=== PATIENT | male | born 1960 | race Caucasian/White ===

== ENCOUNTER → 2020-08-22 | Outpatient (CLI) | payer OTHER ==
[~2020-08-22] VITALS: Ht 182 cm; Wt 74.0 kg
[~2020-08-22] MED LIST: CATHETER FLUSH 10 ML SYR IV PRN; REGADENOSON 0.4 MG/5 ML SYR (LEXISCAN) IV ONE
[2020-08-22 12:15] VITALS: BP 118/71
[2020-08-22 12:20] VITALS: BP 154/70
[2020-08-22 12:25] VITALS: BP 141/85
[2020-08-22 12:28] VITALS: BP 127/83
--- NOTE | 2020-08-22 15:16 | Cardiology Stress Test Report ---
Stress Test Report Date of Procedure/Referring: Date of Procedure: Aug 22, 2020 PCP Myles Gusman MD Admitting Physician No,Local Physician Indications: Shortness of breath Baseline Heart Rate: 71 Baseline Blood Pressure: Blood Pressure Systolic: 127 Blood Pressure Diastolic: 83 Baseline Vitals Vital Signs Date Time Temp Pulse Resp B/P (MAP) Pulse Ox O2 Delivery O2 Flow Rate FiO2 08/22/20 12:15 88 118/71 (87) 98 Room Air Baseline EKG: Baseline EKG: normal sinus rhythm Summary After explaining the procedure to the patient, he signed a consent and then brought to the stress nuclear laboratory. Patient received 0.4 mg Lexiscan for stress test, ECG, heart rate and blood pressure were monitored continuously. Resting and stress dose of radio tracer were injected, imaging was acquired and reviewed in short axis, horizontal long axis and vertical long axis views. TID: 1.06 SSS: 6 SDS: 0 EF: 55 1. Patient was unable to exercise beyond 2 minutes and 30 seconds on standard Dario protocol did not achieve his target heart rate, test was converted to Lexiscan 2. Patient tolerated Lexiscan well 3. Diaphragmatic attenuation with fixed defect involving the mid to apical inferior wall with no significant reversibility 4. Normal left ventricular size, EF 55 percent MYLES GUSMAN MD Aug 22, 2020 15:16
== END ==
LOC: CARD 11:00
PROVIDERS: ATTEND Internal Medicine Cardiovascular Disease
DX: J44.9 Chronic obstructive pulmonary disease, unspecified (principal); Z72.0 Tobacco use; Z82.49 Family history of ischemic heart disease and other diseases of the circulatory system
CPT/HCPCS: 78452; 93017; 93306; A9502

== ENCOUNTER → 2021-05-01 | Outpatient (CLI) | payer OTHER ==
[~2021-05-01] MED LIST changes: -CATHETER FLUSH 10 ML SYR IV PRN; -REGADENOSON 0.4 MG/5 ML SYR (LEXISCAN) IV ONE; +RT-ALBUTEROL SULF 2.5 MG/3 ML PRE-MIX VIAL INH ONE
== END ==
LOC: RT 10:45
PROVIDERS: ATTEND Nurse Practitioner Family
DX: J43.9 Emphysema, unspecified (principal)